=== PATIENT | male | born 1995 | race Caucasian/White ===

== ENCOUNTER 2024-03-29 10:13 | Emergency (ER) | payer SELFPAY ==
[~2024-03-29] VITALS: Ht 167.6 cm; Wt 56.7 kg
[~2024-03-29 10:13] MED LIST: IBUPROFEN600 MG PO; ZANTAC 150150 MG PO
[2024-03-29] MEDS ORDERED: AMOX-CLAV 875-1 EACH PO (10:59)
[2024-03-29] MEDS ORDERED: Amoxicillin/Clavulanate Pota 875 MG TAB PO ONE (11:00)
[2024-03-29] MEDS ORDERED: Acetaminophen/Hydrocodone HP 10/325 PO ONE (11:00)
== END 2024-03-29 11:07 | disposition home or self-care (01) ==
LOC: ED 10:13
DX: K04.7 Periapical abscess without sinus (principal); R22.0 Localized swelling, mass and lump, head; Z87.891 Personal history of nicotine dependence